=== PATIENT | female | born 1980 | race Caucasian/White ===

== ENCOUNTER 2020-10-08 15:35 | Emergency (ER) | payer OTHER ==
[~2020-10-08 15:35] MED LIST: DICYCLOMINE HCL20 MG PO; FLONASE ALLER15.8 ML; HUMIRA10 MG/0.1 SC; ONDANSETRON ODT4 MG SL; PREDNISONE 20MG20 MG PO; SINGULAIR10 MG PO; SYNTHROID100 MCG PO; SYNTHROID125 MCG PO; TOPAMAX50 MG PO; VOLTAREN **OUT75 MG PO; ZYRTEC10 M3 PO
[2020-10-08 16:07] LABS: BASOPHIL 0.5 % (0-2); EOSINOPHIL 2.8 % (0-5); HCT 40.7 % (37.0-47.0); HGB 12.7 g/dl (12.5-16.0); LYMPHOCYTE 20.3 % (15-48); MCH 29.5 pg (25.0-31.0); MCHC 31.2 g/dL (32.0-36.0); MCV 94.4 fL (78.0-100.0); MONOCYTE 6.4 % (0-12); MPV 9.9 fL (6.0-9.5); NEUTROPHIL 69.6 % (41-80); NRBC 0; PLT 311 K/uL (150-400); RBC 4.31 M/uL (4.20-5.40); RDW 12.8 % (11.5-14.0); WBC 10.9 K/uL (4.0-10.5)
[2020-10-08 16:36] LABS: INR 0.94 (0.9-1.2); PROTHROMBIN TIME 11.9 SECONDS (11.4-13.6); PTT 30.3 SECONDS (22.2-34.7)
[2020-10-08 16:37] LABS: D-DIMER 0.42 ug/mLFEU (0.00-0.41)
[2020-10-08 16:38] LABS: ALBUMIN 3.7 g/dL (3.4-5.0); BILIRUBIN - TOTAL 0.3 mg/dL (0.2-1.0); BUN/CREAT RATIO (CALC) 21.8 RATIO; CREATININE 0.55 mg/dL (0.51-0.95); GLOBULIN (CALCULATION) 3.9 g/dL; POTASSIUM 3.8 mmol/L (3.5-5.1); TOTAL PROTEIN 7.6 g/dL (6.4-8.2)
== END 2020-10-08 19:25 | disposition home or self-care (01) ==
LOC: FER 15:35
PROVIDERS: Emergency Medicine
DX: R09.1 Pleurisy (principal); R07.89 Other chest pain; J45.909 Unspecified asthma, uncomplicated; E07.9 Disorder of thyroid, unspecified; Z86.711 Personal history of pulmonary embolism; Z88.0 Allergy status to penicillin; Z88.2 Allergy status to sulfonamides; Z88.1 Allergy status to other antibiotic agents; Z88.6 Allergy status to analgesic agent; Z88.8 Allergy status to other drugs, medicaments and biological substances; Z79.899 Other long term (current) drug therapy
CPT/HCPCS: 36415; 71045; 80053; 84484; 85025; 85379; 85610; 85730; 93005

== ENCOUNTER 2021-09-11 10:53 | Emergency (ER) | payer OTHER ==
[2021-09-11 12:53] LABS: EOSINOPHIL 8.4 % (0-5); HCT 39.7 % (37.0-47.0); HGB 12.7 g/dl (12.5-16.0); LYMPHOCYTE 27.8 % (15-48); MCH 30.2 pg (25.0-31.0); MCV 94.3 fL (78.0-100.0); MONOCYTE 8.2 % (0-12); NEUTROPHIL 54.3 % (41-80); NRBC 0; PLT 297 K/uL (150-400); RBC 4.21 M/uL (4.20-5.40); RDW 13.2 % (11.5-14.0); WBC 6.2 K/uL (4.0-10.5)
[2021-09-11 13:12] LABS: BUN/CREAT RATIO (CALC) 15.3 RATIO; CREATININE 0.59 mg/dL (0.51-0.95); POTASSIUM 3.8 mmol/L (3.5-5.1)
[2021-09-11 13:46] LABS: BILIRUBIN NEGATIVE (NEGATIVE); BLOOD NEGATIVE Ery/uL (NEGATIVE); CLARITY CLEAR (CLEAR); COLOR YELLOW (YELLOW); GLUCOSE (U) NORMAL (NORMAL); LEUKOCYTES NEGATIVE Leu/uL (NEGATIVE); NITRITE NEGATIVE (NEGATIVE); PROTEIN NEGATIVE (NEGATIVE); pH 7.5 (5.0-9.0)
== END 2021-09-11 14:47 | disposition home or self-care (01) ==
LOC: FER 10:53
PROVIDERS: Nurse Practitioner Family
DX: B34.9 Viral infection, unspecified (principal); J45.909 Unspecified asthma, uncomplicated; Z88.0 Allergy status to penicillin; Z88.1 Allergy status to other antibiotic agents; Z88.2 Allergy status to sulfonamides; Z88.6 Allergy status to analgesic agent
CPT/HCPCS: 36415; 71046; 80048; 81003; 85025; 85379; 94664

== ENCOUNTER 2022-01-24 18:35 | Emergency (ER) | payer OTHER ==
[2022-01-24] MEDS ORDERED: PREDNISONE 20MG20 MG PO (22:14)
[2022-01-24] MEDS ORDERED: NAPROXEN500 MG PO (22:14)
[2022-01-24] MEDS ORDERED: BACLOFEN 10MG T10 MG PO (22:14)
== END 2022-01-24 22:25 | disposition home or self-care (01) ==
LOC: FER 18:35
DX: M54.9 Dorsalgia, unspecified (principal); M54.2 Cervicalgia; R51.9 Headache, unspecified; Z88.0 Allergy status to penicillin; Z88.1 Allergy status to other antibiotic agents; Z88.2 Allergy status to sulfonamides; Z88.6 Allergy status to analgesic agent; V49.40XA Driver injured in collision with unspecified motor vehicles in traffic accident, initial encounter
CPT/HCPCS: 70450; 72125; 72131; 96372; J1100; J1885